=== PATIENT | female | born 1990 | race Caucasian/White ===

== ENCOUNTER 2019-05-09 18:01 | Emergency (ER) | payer SELFPAY ==
[~2019-05-09] VITALS: Ht 165.1 cm; Wt 65.8 kg
[2019-05-09 18:01] VITALS: BP 132/85
[2019-05-09] MEDS ORDERED: HYDROcodone/APAP 5/325MG 1 TAB TABLET PO ONE (18:30)
[2019-05-09] MEDS ORDERED: CEPHALEXIN 250 MG CAPSULE PO ONE (18:30)
--- NOTE | 2019-05-09 19:34 | RAD ---
3 views of left index finger dated 05/09/2019. No comparison available. CLINICAL INDICATION: Pain after injury. Evaluate for foreign body. FINDINGS: 3 views left index finger show normal bony alignment. No displaced fracture. No radiopaque foreign body. No soft tissue gas. IMPRESSION: No acute bony abnormality or radiopaque foreign body. Electronically signed by: Cas Mata MD (05/09/2019 7:31 PM) [facility]
[2019-05-09] MEDS ORDERED: CEPH-264 PO (19:39)
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
== END 2019-05-09 20:10 | disposition home or self-care (01) ==
LOC: ER 18:01
DX: S61.231A Puncture wound without foreign body of left index finger without damage to nail, initial encounter (principal); X58.XXXA Exposure to other specified factors, initial encounter; Y93.89 Activity, other specified; Y92.89 Other specified places as the place of occurrence of the external cause; Y99.8 Other external cause status
CPT/HCPCS: 73140; 99284

== ENCOUNTER 2020-02-11 01:08 | Emergency (ER) | payer SELFPAY ==
[~2020-02-11] VITALS: Ht 165.1 cm; Wt 69.7 kg
[~2020-02-11 01:08] MED LIST: CEPH-264 PO
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
[2020-02-11 01:53] LABS: ALBUMIN 4.5 g/dL (3.4-5.0); ALBUMIN/GLOBULIN RATIO 1.4 (1.0-1.7); CREATININE 0.9 mg/dL (0.6-1.0); GFR 75.1; TOTAL BILIRUBIN 0.4 mg/dL (0.2-1.0); TOTAL PROTEIN 7.8 g/dL (6.4-8.2)
[2020-02-11 01:57] LABS: BILIRUBIN,URINE NEG (NEG); CLARITY,URINE HAZY; COLOR,URINE STRAW; GLUCOSE,URINE NEG (NEG)
[2020-02-11 01:58] LABS: BACTERIA,URINE FEW /HPF (0-FEW); NITRITE,URINE NEG (NEG); RBC,URINE 0 /HPF (0-2); SQUAMOUS EPITHELIAL CELL,UR FEW /LPF; UROBILINOGEN,URINE 0.2 mg/dL (0.2 mg/dL)
[2020-02-11 02:05] LABS: POTASSIUM 2.8 mmol/L (3.5-5.1)
[2020-02-11 02:09] LABS: BARBITURATES NEG (NEG); BENZODIAZEPINES NEG (NEG); CANNABINOIDS NEG (NEG); COCAINE NEG (NEG); METHADONE NEG (NEG); OPIATES NEG (NEG); PHENCYCLIDINE NEG (NEG)
[2020-02-11 02:11] LABS: AMPHETAMINE/METHAMPHETAMINE NEG (NEG)
[2020-02-11 02:12] LABS: BASO # 0.1 x10^3/uL (0.0-0.2); BASO % 1 % (0-3); EOS # 0.1 x10^3/uL (0.0-0.7); EOS % 1 % (0-3); HEMATOCRIT 40.5 % (36.0-47.0); HEMOGLOBIN 13.8 g/dL (12.0-15.5); LYMPH # 4.3 x10^3/uL (1.0-4.8); LYMPH % 50 % (24-48); MEAN CORPUSCULAR HEMOGLOBIN 33 pg (25-35); MEAN CORPUSCULAR HGB CONC 34 g/dL (31-37); MEAN CORPUSCULAR VOLUME 95 fL (79-100); MONO # 0.8 x10^3/uL (0.0-1.1); MONO % 9 % (0-9); NEUT # 3.5 x10^3uL (1.8-7.7); NEUT % 40 % (31-73); PLATELET COUNT 301 x10^3/uL (140-400); RED BLOOD COUNT 4.26 x10^6/uL (3.50-5.40); RED CELL DISTRIBUTION WIDTH 12.6 % (11.5-14.5); WHITE BLOOD COUNT 8.7 x10^3/uL (4.0-11.0)
[2020-02-11] MEDS ORDERED: MORPHINE SULFATE 4 MG/ML DISP.SYRIN. IV ONE (02:30)
[2020-02-11] MEDS ORDERED: POTASSIUM CL 40MEQ IN 0.9%NACL 1,000 ML IV ONE (02:30)
[2020-02-11] MEDS ORDERED: synthroid (02:46)
[2020-02-11] MEDS ORDERED: GABA-586 PO (02:46)
[2020-02-11] MEDS ORDERED: seroquel (02:46)
[2020-02-11] MEDS ORDERED: celexa (02:47)
[2020-02-11] MEDS ORDERED: TRAZ-120 PO (02:47)
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
[2020-02-11 04:11] VITALS: BP 104/63
== END 2020-02-11 04:45 | disposition short-term general hospital (02) ==
LOC: ER 01:08
DX: S02.85XA Fracture of orbit, unspecified, initial encounter for closed fracture (principal); R07.0 Pain in throat; E87.6 Hypokalemia; R60.0 Localized edema; R06.02 Shortness of breath; F41.9 Anxiety disorder, unspecified; Y04.0XXA Assault by unarmed brawl or fight, initial encounter; Y93.89 Activity, other specified; Y92.89 Other specified places as the place of occurrence of the external cause; Y99.8 Other external cause status
CPT/HCPCS: 36415; 70450; 70486; 72125; 80053; 80307; 81001; 81025; 85025; 87086; 96374; 96375; 96376; 99285; J2060; J2270

== ENCOUNTER 2020-03-19 21:19 | Emergency (ER) | payer SELFPAY ==
[~2020-03-19] VITALS: Ht 165.1 cm; Wt 69.7 kg
[~2020-03-19 21:19] MED LIST changes: +GABA-586 PO; +TRAZ-120 PO; +celexa; +seroquel; +synthroid
[2020-03-19 21:20] VITALS: BP 113/79
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
[2020-03-19] MEDS ORDERED: oxyCODONE/APAP 5/325 1 TAB TABLET PO ONE (21:45)
[2020-03-19] MEDS ORDERED: HYDR-1179 PO (22:11)
--- NOTE | 2020-03-19 22:13 | RAD ---
Exam: Right tib-fib 2 views. Right foot 3 views. Right ankle 3 views INDICATION: Injury TECHNIQUE: Frontal and lateral views of the right tibia and fibula. Frontal, lateral and oblique views of the right foot and ankle Comparisons: None FINDINGS: Tib-fib: Bone mineralization is normal. No acute or healed fractures. Soft tissues are unremarkable. Joint spaces are well-maintained. Foot: Bone mineralization is normal. No acute or healed fractures. Soft tissues are unremarkable. Joint spaces are well-maintained. Ankle: There is diffuse soft tissue swelling surrounding the right ankle. Bone mineralization is normal. Joint spaces are well-maintained. No acute fractures are seen. IMPRESSION: 1. Diffuse soft tissue swelling surrounding the right ankle without underlying osseous abnormality. 2. No acute traumatic injury of the right tibia and fibula. 3. No acute osseous abnormality of the right foot. Electronically signed by: Kemar Childress MD (03/19/2020 10:10 PM) [id number]
[2020-03-19 22:16] LABS: AMPHETAMINE/METHAMPHETAMINE NEG (NEG); BARBITURATES NEG (NEG); BENZODIAZEPINES NEG (NEG); CANNABINOIDS POS (NEG); COCAINE NEG (NEG); METHADONE NEG (NEG); OPIATES NEG (NEG); PHENCYCLIDINE NEG (NEG)
[2020-03-19 22:22] LABS: BACTERIA,URINE FEW /HPF (0-FEW); BILIRUBIN,URINE NEG (NEG); CLARITY,URINE HAZY; COLOR,URINE YELLOW; GLUCOSE,URINE NEG (NEG); NITRITE,URINE NEG (NEG); SQUAMOUS EPITHELIAL CELL,UR MANY /LPF
== END 2020-03-19 22:35 | disposition home or self-care (01) ==
LOC: ER 21:19
DX: S93.601A Unspecified sprain of right foot, initial encounter (principal); S93.401A Sprain of unspecified ligament of right ankle, initial encounter; E03.9 Hypothyroidism, unspecified; X50.0XXA Overexertion from strenuous movement or load, initial encounter; Y93.39 Activity, other involving climbing, rappelling and jumping off; Y92.89 Other specified places as the place of occurrence of the external cause; Y99.8 Other external cause status
CPT/HCPCS: 29515; 36415; 73590; 73610; 73630; 80307; 81001; 81025; 87086; 99284

== ENCOUNTER 2020-03-26 21:49 | Emergency (ER) | payer SELFPAY ==
[~2020-03-26] VITALS: Ht 165.1 cm; Wt 69.7 kg
[2020-03-26 21:49] VITALS: BP 122/79
[~2020-03-26 21:49] MED LIST changes: +HYDR-1179 PO
--- NOTE | 2020-03-26 22:11 | PHYS DOC ---
Past History Past Medical History: Anxiety, Hypothyroid, Other Past Surgical History: Other Additional Past Surgical Histo: left eye surgery Smoking: Cigarettes Alcohol Use: Occasionally Drug Use: None Social History Narrative: Prior drug addiction General Adult EDM: Chief Complaint: ANKLE PROBLEM HPI: HPI: 29-year-old female presents with report of continued right ankle pain x9 days. Patient was previously seen for same 1 week ago (03/19/20) with negative x-rays per [facility] review. Patient reportedly twisted ankle trying to jump a fence to "save a stray dog". Reports continued pain and discomfort despite use of crutches and ankle air splint. Reports there was some concern for possible fracture which was seen by ED physician but not noted by radiologist. Patient t herefore presents for re-evaluation. Denies new injury. Reports some bruising now noted to bottom of foot. Review of Systems: Review of Systems: Constitutional: Denies fever or chills Musculoskeletal: Reports right ankle pain and swelling Integument: Denies rash or skin lesions; reports bruising of right ankle Neurologic: Denies headache, focal weakness or sensory changes Complete systems were reviewed and found to be within normal limits, except as documented in this note. Allergies: Allergies: Allergies Coded Allergies Type Severity Reaction Last Updated Verified No Known Drug Allergies 02/11/20 No Physical Exam: PE: Constitutional: Well developed, well nourished, no acute distress, non-toxic appearance HENT: Normocephalic, atraumatic Eyes: Conjunctiva normal, no discharge Neck: Normal range of motion, supple Cardiovascular: Right DP and PT +2, CR < 2 sec Lungs & Thorax: No respiratory distress, equal chest rise and fall Skin: Warm, dry, mild ecchymosis noted to right distal ankle near heel Extremities: Mild tenderness to right ankle with limited ROM due to pain, anterior drawer negative, joint appears stable, 1+ edema Neurologic: Alert and oriented X 3, no focal deficits noted Psychologic: Affect normal, judgment normal EKG: EKG: [] Radiology/Procedures: Radiology/Procedures: [] Course & Med Decision Making: Course & Med Decision Making Patient presents for continued discomfort to right ankle despite use of air splint and crutches. History of injury 9 days ago. Was seen 7 days ago with negative foot, ankle, and tib-fib x-rays which were reviewed per [facility] and PACS systems. Discussed injury with patient and need for close follow-up with orthopedics for further evaluation as cannot fully evaluate ligamentous injuries. Ankle appears stable however. Limb also neurovascularly intact. Ice applied. Christiano wrap and replacement of air splint performed. Patient advised to continue crutch use. Patient stable for discharge with outpatient follow-up with PCP/orthopedics. Orthopedic referral provided. Discussed findings and plan with patient, who acknowledges understanding and agreement. Ashvin Disclaimer: Ashvin Disclaimer: This electronic medical record was generated, in whole or in part, using a voice recognition dictation system. Splinting Splinting : Location: Right ankle Pre-Made Type: Christiano bandage Pre-Proc Neuro Vasc Exam: normal Post-Proc Neuro Vasc Exam: normal, unchanged from pre-exam Progress Previously supplied right ankle air splint reapplied over Christiano bandage. Departure Departure: Impression: Primary Impression: Ankle pain Qualified Codes: M25.571 - Pain in right ankle and joints of right foot Disposition: HOME/RESIDENCE PRIOR TO ADM Condition: STABLE Referrals: AILYN MOY DO (PCP) MARK FROST MD Patient Instructions: Ankle Pain, Crutch Use, [id number], RICE - Routine Care for Injuries, [id number] Additional Instructions: Continue use of previously prescribed medications and/or over the counter Tylenol and/or Ibuprofen. Justification of Admission: Justification of Admission: Justification of Admission Dx: N/A OZ ANTOINE DO Mar 26, 2020 22:11
== END 2020-03-26 22:30 | disposition home or self-care (01) ==
LOC: ER 21:49
DX: S90.01XA Contusion of right ankle, initial encounter (principal); F17.210 Nicotine dependence, cigarettes, uncomplicated; E03.9 Hypothyroidism, unspecified; X50.9XXA Other and unspecified overexertion or strenuous movements or postures, initial encounter; Y93.89 Activity, other specified; Y92.89 Other specified places as the place of occurrence of the external cause; Y99.8 Other external cause status
CPT/HCPCS: 99283